=== PATIENT | female | born 1985 | race Caucasian/White ===

== ENCOUNTER 2018-05-13 13:39 | Emergency (ER) | payer OTHER ==
--- NOTE | 2018-05-13 15:24 | ER ---
Nurse's Notes [facility] Name: Swathi Campos Age: 32 yrs Sex: Female : 1985 Arrival Date: 05/13/2018 Time: 13:46 Bed 30 Private MD: Diagnosis: Herpesviral [herpes simplex] infections Presentation: 05/13 14:01 Presenting complaint: Patient states: Rash to upper lip and bilateral cheeks that aj started today. Patient seen in urgent care and referred to ER to R/O shingles. Transition of care: patient was not received from another setting of care. Onset of symptoms was May 13, 2018. Risk Assessment: Do you want to hurt yourself or someone else? Patient reports no desire to harm self or others. Initial Sepsis Screen: Does the patient meet any 2 criteria? No. Patient's initial sepsis screen is negative. Does the patient have a suspected source of infection? No. Patient's initial sepsis screen is negative. Care prior to arrival: None. 14:01 Method Of Arrival: Ambulatory 14:01 Acuity: RAGHU 3 aj Triage Assessment: 14:02 General: Appears in no apparent distress. uncomfortable, Behavior is calm, cooperative, aj appropriate for age. Pain: Complains of pain in right cheek, right ear, left ear, left cheek and mouth. EENT: Reports pain in right cheek, right ear, left ear, left cheek and mouth. Neuro: Level of Consciousness is awake, alert, obeys commands, Oriented to person, place, time, situation, Appropriate for age. Respiratory: Airway is patent Respiratory effort is even, unlabored, Respiratory pattern is regular, symmetrical. Derm: Skin is intact, is healthy with good turgor, Skin is pink, warm \T\ dry. normal, Rash noted that is vesicular, on upper lavelle border. 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 - Social history:: Smoking status: Patient/guardian denies using tobacco. - Ebola Screening: : Patient negative for fever greater than or equal to 101.5 degrees Fahrenheit, and additional compatible Ebola Virus Disease symptoms Patient denies exposure to infectious person Patient denies travel to an Ebola-affected area in the 21 days before illness onset No symptoms or risks identified at this time. Screenin:12 Abuse screen: Denies threats or abuse. Denies injuries from another. Nutritional rv screening: No deficits noted. Tuberculosis screening: No symptoms or risk factors identified. Fall Risk None identified. Assessment: 15:11 General: Appears in no apparent distress. comfortable, Behavior is calm, cooperative. rv Pain: Complains of pain in circumoral. Neuro: Level of Consciousness is awake, alert, obeys commands, Oriented to person, place, time, situation. Cardiovascular: Capillary refill < 3 seconds. Respiratory: Airway is patent. GI: No signs and/or symptoms were reported involving the gastrointestinal system. : No signs and/or symptoms were reported regarding the genitourinary system. EENT: No signs and/or symptoms were reported regarding the EENT system. Derm: Rash noted that is itchy, red, on circumoral. Vital Signs: 14:02 BP 117 / 63; Pulse 77; Resp 19; Temp 98.4; Pulse Ox 100% on R/A; Weight 61.23 kg; aj Height 5 ft. 0 in. (152.40 cm); 15:13 BP 111 / 67; rv 14:02 Body Mass Index 26.37 (61.23 kg, 152.40 cm) ED Course: 13:46 Patient arrived in ED. mr 14:02 Triage completed. 14:02 Arm band placed on right wrist. Patient placed in waiting room. aj 14:50 Chano White PA is PHCP. [facility] 14:50 Royce Rivero MD is Attending Physician. [facility] 15:12 Patient has correct armband on for positive identification. Bed in low position. Call rv light in reach. Side rails up X 1. Adult w/ patient. NIBP on. 15:40 No provider procedures requiring assistance completed. Patient did not have IV access rv during this emergency room visit. Administered Medications: No medications were administered Outcome: 15:23 Discharge ordered by . [facility] 15:42 Discharged to home ambulatory. rv 15:42 Condition: good 15:42 Discharge instructions given to patient, Instructed on discharge instructions, follow up and referral plans. medication usage, Demonstrated understanding of instructions, follow-up care, medications, Prescriptions given X 3. 15:42 Patient left the ED. rv Signatures: Thania Ureña, RN Chano Dominguez PA PA jmm Rivera, Mary mr DotsonSlava RN RN rv Corrections: (The following items were deleted from the chart) 14:05 14:02 Arm band placed on right wrist. Patient placed in an exam room, yas sorenson
--- NOTE | 2018-05-13 15:24 | EDPHYS ---
Physician Documentation [facility] Name: Swathi Campos Age: 32 yrs Sex: Female : 1985 Arrival Date: 05/13/2018 Time: 13:46 Bed 30 Private MD: ED Physician Royce Rivero HPI: 05/13 15:21 This 32 yrs old Female presents to ER via Ambulatory with complaints of Rash. [facility] 15:21 The patient's rash thought to be caused by an unknown cause. The rash is located on the [facility] upper lavelle border and face and mouth and left cheek and left ear and right ear and right cheek. The rash can be described as erythematous. Onset: The symptoms/episode began/occurred today. Associated signs and symptoms: Pertinent positives: itching. This is a 32 year old female with a history of hypothyroidism and herpes zoster that presents to the ED. With a facial rash beginning this morning. Patient denies fever. . 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 - Social history:: Smoking status: Patient/guardian denies using tobacco. - Ebola Screening: : Patient negative for fever greater than or equal to 101.5 degrees Fahrenheit, and additional compatible Ebola Virus Disease symptoms Patient denies exposure to infectious person Patient denies travel to an Ebola-affected area in the 21 days before illness onset No symptoms or risks identified at this time. ROS: 15:21 Constitutional: Negative for fever, chills, and weight loss, Eyes: Negative for injury, jmm pain, redness, and discharge, Cardiovascular: Negative for chest pain, palpitations, and edema, Respiratory: Negative for shortness of breath, cough, wheezing, and pleuritic chest pain. 15:21 Skin: Positive for rash. 15:21 All other systems are negative. Exam: 15:21 Constitutional: This is a well developed, well nourished patient who is awake, alert, jmm and in no acute distress. 15:21 Chest/axilla: Normal chest wall appearance and motion. Cardiovascular: Regular rate jmm and rhythm. No edema appreciated Respiratory: Normal respirations, no respiratory distress appreciated Abdomen/GI: Non distended, soft Back: Normal ROM 15:21 Head/face: vesicular rash noted to the upper lip. 15:21 Skin: vesicular rash noted to the upper lip. 15:21 Neuro: Orientation: is normal, Mentation: is normal, Memory: is normal. 15:21 Psych: Behavior/mood is pleasant, cooperative. Vital Signs: 14:02 BP 117 / 63; Pulse 77; Resp 19; Temp 98.4; Pulse Ox 100% on R/A; Weight 61.23 kg; aj Height 5 ft. 0 in. (152.40 cm); 15:13 BP 111 / 67; rv 14:02 Body Mass Index 26.37 (61.23 kg, 152.40 cm) aj MDM: 15:21 Patient medically screened. [facility] 15:22 Data reviewed: vital signs, nurses notes. Counseling: I had a detailed discussion with irma the patient and/or guardian regarding: the historical points, exam findings, and any diagnostic results supporting the discharge/admit diagnosis, radiology results, the need for outpatient follow up, to return to the emergency department if symptoms worsen or persist or if there are any questions or concerns that arise at home. 15:22 Data interpreted: Pulse oximetry: on room air is 100 %. [facility] 15:22 ED course: Patient's symptoms appear consistent with herpes rash. Patient prescribed [facility] valtrex and advised to follow up with dermatology for further evaluation. . Administered Medications: No medications were administered Disposition: 05/14 13:12 Co-signature as Attending Physician, Royce Rivero MD I agree with the assessment and kdr plan of care. Disposition: 05/13/18 15:23 Discharged to Home. Impression: Herpesviral [herpes simplex] infections. - Condition is Stable. - Discharge Instructions: Cold Sore. - Prescriptions for gabapentin 100 mg Oral capsule - take 1 capsule by ORAL route 3 times per day; 30 capsule. Hydroxyzine HCl 25 mg Oral Tablet - take 1 tablet by ORAL route every 6 hours As needed; 30 tablet. Valtrex 1 g Oral Tablet - take 1 tablet by ORAL route every 8 hours for 7 days; 21 tablet. - Medication Reconciliation Form, Thank You Letter, Antibiotic Education, Prescription Opioid Use form. - Follow up: Private Physician; When: 2 - 3 days; Reason: Recheck today's complaints, Continuance of care, Re-evaluation by your physician. Signatures: Thania Ureña RN RN Royce Cottrell MD MD kdr Mickail, Joel, PA PA jmm Vicente, Ronaldo, RN RN rv Corrections: (The following items were deleted from the chart) 05/13 15:42 15:23 05/13/2018 15:23 Discharged to Home. Impression: Herpesviral [herpes simplex] rv infections. Condition is Stable. Forms are Medication Reconciliation Form, Thank You Letter, Antibiotic Education, Prescription Opioid Use. Follow up: Private Physician; When: 2 - 3 days; Reason: Recheck today's complaints, Continuance of care, Re-evaluation by your physician. irma
== END 2018-05-13 15:42 | disposition home or self-care (01) ==
LOC: ER 13:39
DX: B00.9 Herpesviral infection, unspecified (principal); E03.9 Hypothyroidism, unspecified
CPT/HCPCS: 99282